=== PATIENT | male | born 1940 | race Two or more races ===

== ENCOUNTER 2024-02-14 13:18 | Emergency (ER) | payer OTHER ==
[~2024-02-14] VITALS: Ht 175.3 cm; Wt 71.5 kg
[2024-02-14] MEDS ORDERED: TOBRSUS34 EACHEYE (14:32)
[2024-02-14 15:44] VITALS: BP 145/80; PULSE 77; RESP 18; TEMP 97.8; O2SAT 96
== END 2024-02-14 15:47 | disposition home or self-care (01) ==
LOC: ER 13:18
DX: H01.006 Unspecified blepharitis left eye, unspecified eyelid (principal); H01.003 Unspecified blepharitis right eye, unspecified eyelid; F17.200 Nicotine dependence, unspecified, uncomplicated; H04.123 Dry eye syndrome of bilateral lacrimal glands